=== PATIENT | female | born 1960 | race Caucasian/White ===

== ENCOUNTER 2016-06-10 14:50 | Outpatient (CLI) | payer OTHER | END 2016-06-10 14:51 | disposition home or self-care (01) | DX: Z13.9 Encounter for screening, unspecified (principal); R53.83 Other fatigue ==

== ENCOUNTER 2016-09-07 14:18 | Emergency (ER) | payer OTHER | END 2016-09-07 15:52 | disposition left against medical advice (07) | LOC: ED 14:18 | DX: Z53.21 Procedure and treatment not carried out due to patient leaving prior to being seen by health care provider (principal) | CPT/HCPCS: 99281 ==

== ENCOUNTER 2017-08-25 10:08 | Outpatient (CLI) | payer MEDICAID ==
[2017-08-25 17:35] LABS: BASOPHILS # (AUTO) 0.1 10^3/uL (0.0-0.1); BASOPHILS % (AUTO) 0.6 %; EOSINOPHILS # (AUTO) 0.1 10^3/uL (0.0-0.7); EOSINOPHILS % (AUTO) 1.2 %; HGB - HEMOGLOBIN 15.2 g/dL (12.0-16.0); LYMPHOCYTES # (AUTO) 2.8 10^3/uL (1.5-3.5); LYMPHOCYTES % (AUTO) 32.7 %; MEAN CORPUSCULAR HGB CONC 32.4 g/dL (32.0-36.0); MEAN CORPUSCULAR VOLUME 92.7 fL (81.0-99.0); MEAN PLATELET VOLUME 8.9 fL (7.9-10.8); MONOCYTES # (AUTO) 0.5 10^3/uL (0.0-1.0); MONOCYTES % (AUTO) 5.6 %; NEUTROPHILS # (AUTO) 5.1 10^3/uL (1.5-6.6); NEUTROPHILS % (AUTO) 59.9 %; PLT - PLATELET COUNT 273 10^3/uL (130-450); RED BLOOD COUNT 5.06 10^6/uL (4.20-5.40); RED CELL DISTRIBUTION WIDTH 14.3 % (12.0-15.0); WHITE BLOOD COUNT 8.5 x10^3/uL (4.8-10.8)
[2017-08-25 18:01] LABS: ALBUMIN 4.4 g/dL (3.2-5.5); ALBUMIN/GLOBULIN RATIO 1.2 (1.0-2.2); ALKALINE PHOSPHATASE 111 IU/L (42-121); ALT ALANINE AMINOTRANSFERASE 21 IU/L (10-60); AST ASPARTATE AMINOTRANSFERASE 20 IU/L (10-42); BILIRUBIN,TOTAL 0.4 mg/dL (0.2-1.0); BUN - BLOOD UREA NITROGEN 18 mg/dL (6-20); CALCIUM 9.8 mg/dL (8.5-10.3); CARBON DIOXIDE - CO2 26 mmol/L (21-32); CHLORIDE 103 mmol/L (101-111); CHOLESTEROL 215 mg/dL; CREATININE 0.8 mg/dL (0.4-1.0); GFR - MDRD 74 (>89); GLUCOSE 83 mg/dL (70-100); HDL CHOLESTEROL 72 mg/dL; LDL CHOLESTEROL,CALCULATED 127 mg/dL; LDL/HDL RATIO 1.8 (<4.4); SODIUM 138 mmol/L (135-145); VLDL CHOLESTEROL 16 mg/dL
== END 2017-08-25 10:09 | disposition home or self-care (01) ==
LOC: LAB.F 10:08
PROVIDERS: ATTEND Physician Assistant Medical
DX: Z00.00 Encounter for general adult medical examination without abnormal findings (principal)
CPT/HCPCS: 36415; 80053; 80061; 82306; 83721; 84443; 85025

== ENCOUNTER 2017-09-24 14:11 | Emergency (ER) | payer MEDICAID ==
--- NOTE | 2017-09-24 14:22 | ED Physician Documentation ---
History of Present Illness - Stated complaint Stated Complaint: GLF - Chief complaint Chief Complaint: Back Pain - History obtained from History obtained from: Patient - History of Present Illness Timing: Today Pain level max: 8 Pain level now: 8 Improved by: rest Worsened by: movement - Additonal information Additional information: 56 year old female fell off her horse today. 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 No LOC. No headache. Took tramadol and vicodin without relief. Also took ibuprofen. States only pain is to the lower back. No numbness, no tingling, no loss of bowel or bladder control. No history of low back issues. Review of Systems Ten Systems: 10 systems reviewed and negative Constitutional: denies: Fever, Chills Nose: denies: Rhinorrhea / runny nose, Congestion Throat: denies: Sore throat Cardiac: denies: Chest pain / pressure Respiratory: denies: Cough GI: denies: Abdominal Pain, Nausea, Vomiting, Diarrhea Skin: denies: Rash Musculoskeletal: reports: Back pain. 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 - Present Medications Home Medications: Ambulatory Orders Medication Instructions Recorded Confirmed Citalopram [CeleXA] 10 mg DAILY 12/09/15 12/09/15 diazePAM [Valium] 5 - 10 mg PO TID PRN #15 tablet 09/24/17 - Allergies Allergies/Adverse Reactions: Allergies Allergy/AdvReac Type Severity Reaction Status Date / Time No Known Drug Allergies Allergy Verified 12/09/15 09:35 - Social History Does the pt smoke?: No Smoking Status: Never smoker Does the pt drink ETOH?: Yes Does the pt have substance abuse?: No - Immunizations Immunizations are current?: Yes - POLST Patient has POLST: No PD ED PE NORMAL - Vitals Vital signs reviewed: Yes - General General: Alert and oriented X 3, No acute distress, Well developed/nourished - HEENT HEENT: Atraumatic, PERRL, EOMI, Ears normal, Moist mucous membranes - Neck Neck: Supple, no meningeal sign, No bony TTP - Cardiac Cardiac: RRR, Strong equal pulses - Respiratory Respiratory: No respiratory distress, Clear bilaterally - Abdomen Abdomen: Soft, Non tender, Non distended - Back Back: Other (L spine TTP midline approx L 3-5. No C or T spine tenderness. NVI. Paraspinal spasm present. 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 Findings likely represent an age-indeterminate compression fracture. Correlate for area of pain. Findings could be confirmed with CT or MRI. . Facet arthropathy at L4-L5 and L5-S1. ) PD MEDICAL DECISION MAKING - ED course Complexity details: reviewed results, re-evaluated patient (no tenderness over upper L spine or lower T spine on serial exam. ), considered differential (no cauda equina, no spinal epidural abscess, no fracture, no aortic dissection or evidence of aneursym rupture), d/w patient, d/w family ED course: Patient is a 56-year-old female who presents to the emergency department with back pain after falling off a horse earlier today. Appears to have an old L1 superior endplate compression fracture. There is no pain or tenderness at that level on examination today. All of her pain is to the lower lumbar spine. Pain well controlled. Has narcotic pain medication at home and will add Valium for muscle relaxants. We will have her follow-up closely with her PCP for further care. Ambulating well. Patient counseled regarding signs and symptoms for which I believe and urgent re-evaluation would be necessary. Patient with good understanding of and agreement to plan and is comfortable going home at this time This document was made in part using voice recognition software. While efforts are made to proofread this document, sound alike and grammatical errors may occur. Departure - Departure Disposition: 01 Home, Self Care Clinical Impression: Back strain Qualifiers: Encounter type: initial encounter Qualified Code(s): S39.012A - Strain of muscle, fascia and tendon of lower back, initial encounter Condition: Good Instructions: ED Sprain Strain Lumbar Follow-Up: Montserrat Arnold PA-C [Primary Care Provider] - Within 1 week Prescriptions: diazePAM [Valium] 5 - 10 mg PO TID PRN #15 tablet PRN Reason: Spasms Comments: Return if you worsen. This should improve over the next few days. Do not drink alcohol or drive while on valium. If you received narcotic pain medication in the emergency department, do not drive or operate machinery for the next 24 hours. Discharge Date/Time: 09/24/17 16:46
[2017-09-24] MEDS ORDERED: HYDROmorphone 1 MG/ML CARPUJECT IM STA (14:29)
[2017-09-24] MEDS ORDERED: diazePAM INJ 5 MG/ML SYRINGE IVP STA (14:40)
[2017-09-24] MEDS ORDERED: HYDROmorphone 1 MG/ML CARPUJECT IVP STA (14:40)
--- NOTE | 2017-09-24 15:24 | XRAY Preliminary Report ---
Exam: XR LUMBAR SPINE 2 VIEW IMPRESSION: 1. Age-indeterminate L1 superior catheter loss of 10-15%. Findings likely represents an age-indetermi shadia compression fracture. Correlate for area of pain. Findings could be confirmed with CT or MRI. 2. Facet arthropathy at L4-L5 and L5-S1. [facility] SITE ID: [id number]
--- NOTE | 2017-09-24 15:41 | XRAY Report ---
EXAM: LUMBOSACRAL SPINE RADIOGRAPHY EXAM DATE: 09/24/2017 03:06 PM. CLINICAL HISTORY: Fell off horse. COMPARISONS: None. TECHNIQUE: 3 views. FINDINGS: Alignment: Gentle convex to the left curvature centered at the mid lumbar spine. No spondylolisthesis appreciated. Bones: Five vjl-zdf-apezucz lumbar vertebral bodies are present. Approximately 10-15% L1 superior end plate height loss. The remaining vertebral bodies are intact. Disks: Normal. Disk heights are maintained. Facets: Facet sclerosis most notable at L4-L5 and L5-S1 level. Sacroiliac Joints: Unremarkable. Soft Tissues: Normal. The visualized bowel gas pattern is normal. Comment: Significant stool and gas overlies the sacrum limiting the evaluation for fractures. IMPRESSION: 1. Age-indeterminate L1 superior catheter loss of 10-15%. Findings likely represent an age-indetermin ate compression fracture. Correlate for area of pain. Findings could be confirmed with CT or MRI. 2. Facet arthropathy at L4-L5 and L5-S1. [facility] Referring Provider Line: [phone] SITE ID: [id number]
[2017-09-24 16:18] VITALS: BP 119/81
== END 2017-09-24 16:46 | disposition home or self-care (01) ==
LOC: ED 14:11
DX: S39.012A Strain of muscle, fascia and tendon of lower back, initial encounter (principal); V80.010A Animal-rider injured by fall from or being thrown from horse in noncollision accident, initial encounter; Y93.52 Activity, horseback riding; M81.0 Age-related osteoporosis without current pathological fracture
CPT/HCPCS: 72100; 96374; 96375; 99283; 99284; J1170

== ENCOUNTER 2017-10-20 11:31 | Outpatient (CLI) | payer MEDICAID ==
--- NOTE | 2017-10-20 12:31 | XRAY Report ---
THREE VIEW RIGHT GREAT TOE: 10/20/2017 CLINICAL INDICATION: Pain. FINDINGS: AP, lateral, oblique views of the right great toe demonstrate sideplate and screw fixation of the first metatarsophalangeal joint. Mild osteoarthritic changes are present in the interphalangeal joint. There is no evidence of fracture or hardware complication. IMPRESSION: PREVIOUS FUSION OF THE FIRST METATARSOPHALANGEAL JOINT. NO EVIDENCE OF FRACTURE OR HARDWARE COMPLICATION. TD: 10/20/2017 12:19
== END 2017-10-20 11:32 | disposition home or self-care (01) ==
LOC: DI 11:31
PROVIDERS: ATTEND Family Medicine
DX: M79.674 Pain in right toe(s) (principal)
CPT/HCPCS: 73660

== ENCOUNTER 2017-10-20 11:32 | Outpatient (CLI) | payer MEDICAID ==
--- NOTE | 2017-10-20 12:28 | XRAY Report ---
THREE VIEW RIGHT ANKLE: 10/20/2017 CLINICAL INDICATION: Pain status post fall. FINDINGS: AP, lateral, oblique views of the right ankle demonstrate a mildly displaced fracture of the distal fibular shaft. Lateral soft tissue swelling is present. No joint effusion is seen. IMPRESSION: MILDLY DISPLACED FRACTURE OF THE DISTAL FIBULAR SHAFT. TD: 10/20/2017 12:14
--- NOTE | 2017-10-20 12:29 | XRAY Report ---
TWO VIEW RIGHT LOWER LE10/20/2017 CLINICAL INDICATION: Pain. FINDINGS: AP, lateral views of the right lower leg demonstrate a mildly displaced fracture of the distal fibular shaft. No proximal fracture is seen. Osteoarthritis is present, mild. IMPRESSION: MILDLY DISPLACED FRACTURE OF THE DISTAL FIBULAR SHAFT. TD: 10/20/2017 12:15
== END 2017-10-20 11:33 | disposition home or self-care (01) ==
LOC: DI 11:32
PROVIDERS: ATTEND Physician Assistant Medical
DX: S82.401A Unspecified fracture of shaft of right fibula, initial encounter for closed fracture (principal); M79.661 Pain in right lower leg; M25.571 Pain in right ankle and joints of right foot; M79.674 Pain in right toe(s)
CPT/HCPCS: 73660

== ENCOUNTER 2018-04-01 12:35 | Outpatient (CLI) | payer OTHER ==
--- NOTE | 2018-04-01 13:54 | XRAY Report ---
Reason: SHOULDER JOINT PAIN,RIGHT Procedure Date: 04/01/2018 Accession Number: [id number] / [id number] Procedure: XR - Shoulder 3 View RT CPT Code: FULL RESULT: EXAM: RIGHT SHOULDER RADIOGRAPHY EXAM DATE: 04/01/2018 01:10 PM. CLINICAL HISTORY: SHOULDER JOINT Pain, right. COMPARISON: None. TECHNIQUE: 3 views. FINDINGS: Bones: No fracture or bone lesion. Joints: The glenohumeral and acromioclavicular joints are anatomically aligned. There is moderately advanced degenerative narrowing with sclerosis and spurring of the right glenohumeral articulation.. Soft tissues: The included hemithorax is unremarkable. No soft tissue calcification. IMPRESSION: Moderate degenerative change right glenohumeral articulation without superimposed acute findings. [facility]
== END 2018-04-01 12:36 | disposition home or self-care (01) ==
LOC: DI 12:35
PROVIDERS: ATTEND Physician Assistant Medical
DX: M19.011 Primary osteoarthritis, right shoulder (principal)

== ENCOUNTER 2018-04-04 10:08 | Outpatient (CLI) | payer OTHER ==
--- NOTE | 2018-04-05 10:57 | DEXA Report ---
Reason: SCREENING FOR OSTEOPOROSIS Procedure Date: 04/04/2018 Accession Number: [id number] / [id number] Procedure: DEX - Dexa Spine and/or Hip CPT Code: FULL RESULT: EXAM: Dexa Spine and/or Hip DATE: 04/04/2018 10:36 AM CLINICAL HISTORY: SCREENING FOR OSTEOPOROSIS TECHNIQUE: Dual energy x-ray absorptiometry (DXA) was performed on a [employer] System. Regions measured are the AP Spine, femoral neck, and if needed forearm. COMPARISON: None. In accordance with the International Society for Clinical Densitometry (ISCD) guidelines, data from previous exams may be reanalyzed using current recommendations and techniques. This is done to allow a more accurate basis for comparison with the current study. FINDINGS: The data for the lumbar spine is as follows: BMD (g/cm/cm) T-SCORE Z-SCORE REGION L1 1.110 -0.2 1.2 L2 0.841 -3.0 -1.6 L3 0.985 -1.8 -0.4 L4 0.960 -2.0 -0.6 TOTAL 0.938 -2.2 -0.8 NOTE: All evaluable vertebrae are used for classification The data for the hip is as follows: BMD (g/cm/cm) T-SCORE Z-SCORE REGION Neck 0.687 -2.5 -1.2 TOTAL 0.714 -2.3 -1.3 NOTE: The femoral neck or total proximal femur, whichever is lowest, is used for classification. IMPRESSION: THE WHO CLASSIFICATION BASED ON THE INTERNATIONAL REFERENCE STANDARD IS OSTEOPOROSIS. THE FRACTURE RISK IS HIGH. RECOMMENDATION: Patients with diagnosis of osteoporosis or osteopenia should have regular bone mineral density assessment. For those eligible for Medicare, routine testing is allowed once every 2 years. Testing frequency can be increased for patients who have rapidly progressing disease or for those who are receiving medical therapy to restore bone mass. COMMENT: World Health Organization (WHO) definitions for osteoporosis and osteopenia: NORMAL BMD: T-score at -1.0 or higher, fracture risk is low OSTEOPENIA BMD: T-score between -1.0 and -2.5, fracture risk is increased. OSTEOPOROSIS BMD: T-score at -2.5 or lower, fracture risk is high. National Osteoporosis Foundation recommends: 1. Obtain adequate dietary calcium (at least 1200 mg per day) and vitamin D (400-800 international units per day). 2. Participate, as appropriate, in regular weightbearing and muscle-strengthening exercise. 3. Avoid tobacco use and reduce alcohol and caffeine intake. 4. For more detailed information see the website at www.NOF.org.
== END 2018-04-04 10:09 | disposition home or self-care (01) ==
LOC: DI 10:08
PROVIDERS: ATTEND Physician Assistant Medical
DX: Z13.820 Encounter for screening for osteoporosis (principal); M81.0 Age-related osteoporosis without current pathological fracture
CPT/HCPCS: 77080

== ENCOUNTER 2018-04-12 11:23 | Outpatient (CLI) | payer OTHER ==
--- NOTE | 2018-04-13 09:06 | Mammography Report ---
Reason: SCREENING MAMMO NEC Procedure Date: 04/12/2018 Accession Number: [id number] / [id number] Procedure: YUN - Screening Mammo w/Kam CPT Code: FULL RESULT: EXAM: Screening Mammo w/Kam DATE: 04/12/2018 11:56 AM CLINICAL HISTORY: 57 year-old nulliparous female for screening. TECHNIQUE: Bilateral CC and MLO views were obtained. COMPARISON: 07/28/2011, 02/07/2010, 01/07/2009. FINDINGS: The breasts demonstrate scattered fibroglandular densities bilaterally. No suspicious masses, clustered microcalcifications, or regions of architectural distortion are identified. IMPRESSION: Negative examination RECOMMENDATION: Routine annual screening unless otherwise clinically indicated. BIRADS CATEGORY 1: Negative STANDARD QUALIFYING STATEMENTS: 1. This examination was not reviewed with the aid of Computer-Aided Detection (CAD). 2. A negative or benign imaging report should not delay biopsy if clinically suspicious findings are present. Consider surgical consultation if warrented. More than 5% of cancers are not identified by imaging. 3. Dense breasts may obscure an underlying neoplasm. 4. This examination was reviewed with the aid of 3D breast imaging (tomosynthesis).
== END 2018-04-12 11:24 | disposition home or self-care (01) ==
LOC: DI 11:23
PROVIDERS: ATTEND Physician Assistant Medical
DX: Z12.31 Encounter for screening mammogram for malignant neoplasm of breast (principal)
CPT/HCPCS: 77063; 77067

== ENCOUNTER 2019-09-20 18:00 | Outpatient (CLI) | payer MEDICAID | END 2019-09-20 18:01 | disposition home or self-care (01) | LOC: COV 18:00 | PROVIDERS: ATTEND Family Medicine | DX: R05 Cough (principal); R06.02 Shortness of breath; R06.2 Wheezing; R53.83 Other fatigue | CPT/HCPCS: 81599 ==

== ENCOUNTER 2020-12-27 09:17 | Outpatient (CLI) | payer MEDICAID | END 2020-12-27 09:18 | disposition home or self-care (01) | LOC: RT 09:17 | PROVIDERS: ATTEND Internal Medicine | DX: J45.909 Unspecified asthma, uncomplicated (principal) | CPT/HCPCS: 94060; 94729 ==

== ENCOUNTER 2021-01-02 09:47 | Outpatient (CLI) | payer MEDICAID ==
--- NOTE | 2021-01-02 12:19 | DEXA Report ---
PROCEDURE: Dexa Spine and/or Hip INDICATIONS: OSTEOPOROSIS TECHNIQUE: Dual energy x-ray absorptiometry (DXA) was performed on a [employer] System. Regions measur ed are the AP Spine, femoral neck, and if needed forearm. COMPARISON: None. FINDINGS: Lumbar Spine: Bone Mineral Density 0.981 g/cm/cm,T score -1.7, osteopenia Left Femoral Neck: Bone Mineral Density 0.686 g/cm/cm, T score -2.6, osteoporosis (T score greater or equal to -1.0: NORMAL) (T score from -1.1 to -2.4: OSTEOPENIA) (T score less than or equal to -2.5 to: OSTEOPOROSIS) Impression: Osteoporosis Patients with diagnosis of osteoporosis or osteopenia should have regular bone mineral density assess ment. For those eligible for Medicare, routine testing is allowed once every 2 years. Testing frequ ency can be increased for patients who have rapidly progressing disease or for those who are receivin g medical therapy to restore bone mass. Reviewed by: Norberto Lemus MD on 01/02/2021 12:18 PM PDT Approved by: Norberto Lemus MD on 01/02/2021 12:18 PM PDT Station ID: [id number]
== END 2021-01-02 09:48 | disposition home or self-care (01) ==
LOC: DI 09:47
PROVIDERS: ATTEND Internal Medicine
DX: M81.0 Age-related osteoporosis without current pathological fracture (principal)

== ENCOUNTER 2021-01-28 12:58 | Outpatient (CLI) | payer MEDICAID ==
--- NOTE | 2021-01-28 13:38 | XRAY Report ---
PROCEDURE: Chest 2 View X-Ray INDICATIONS: ASTHMA TECHNIQUE: 2 view(s) of the chest. COMPARISON: None. FINDINGS: Surgical changes and devices: None. Lungs and pleura: No pleural effusions or pneumothorax. There is hyperinflation. No focal infiltrate . Mediastinum: Mediastinal contours are normal. Heart size is normal. Bones and chest wall: No suspicious bony abnormalities. Soft tissues appear unremarkable. IMPRESSION: Mild hyperinflation. No focal infiltrate, pleural effusion or pneumothorax. Reviewed by: Jovanny Randolph MD on 01/28/2021 1:36 PM PDT Approved by: Jovanny Randolph MD on 01/28/2021 1:36 PM PDT Station ID: [id number]
== END 2021-01-28 12:59 | disposition home or self-care (01) ==
LOC: DI.S 12:58
PROVIDERS: ATTEND Internal Medicine
DX: J45.909 Unspecified asthma, uncomplicated (principal)

== ENCOUNTER 2022-05-13 09:12 | Outpatient (CLI) | payer MEDICAID ==
--- NOTE | 2022-05-13 09:35 | XRAY Report ---
PROCEDURE: Chest 2 View X-Ray INDICATIONS: CHEST PX TECHNIQUE: 2 views of the chest were acquired. COMPARISON: 01/28/2021 FINDINGS: Surgical changes and devices: None. Lungs and pleura: No pleural effusions or pneumothorax. Lungs are clear. The lungs are hyperinflat ed. Mediastinum: Mediastinal contours are normal. Heart size is normal. Bones and chest wall: No suspicious bony abnormalities. Soft tissues appear unremarkable. IMPRESSION: Mild hyperinflation, unchanged. No acute cardiopulmonary abnormality Reviewed by: Christ Jerez on 05/13/2022 9:33 AM [facility] Approved by: Christ Jerez on 05/13/2022 9:33 AM [facility] Station ID: [id number]
== END 2022-05-13 09:13 | disposition home or self-care (01) ==
LOC: DI 09:12
PROVIDERS: ATTEND Nurse Practitioner Family
DX: J44.9 Chronic obstructive pulmonary disease, unspecified (principal)

== ENCOUNTER 2022-05-13 09:35 | Outpatient (CLI) | payer MEDICAID ==
--- NOTE | 2022-05-13 11:13 | CT Report ---
PROCEDURE: Low Dose Lung Cancer Screen INDICATIONS: EX SMOKER TECHNIQUE: Noncontrast low-dose axial images were acquired from the pulmonary apices to the posterior costophren ic angles. Multiplanar MIP reformats were then reconstructed. For radiation dose reduction, the follo wing was used: automated exposure control, adjustment of mA and/or kV according to patient size. COMPARISON: None. FINDINGS: Image quality: Excellent. Lungs and pleura: There is a single small 1 to 2 mm pulmonary nodular density involving the patient' s left upper lobe. No other pulmonary nodular densities are identified. No focal lung infiltrate is s een. Mild emphysematous changes noted throughout both lungs. Mediastinum: Heart size is normal. No pericardial effusion. No mediastinal adenopathy by size crit eria. Thoracic aorta and central pulmonary arteries are normal in size. Esophagus is normal in aldo gera. No hiatal hernia. Bones and chest wall: There is an old lateral left fifth rib fracture present. No suspicious bony le sions. There appears to be an old moderate compression fracture involving the lower thoracic spine. N o axillary or supraclavicular adenopathy by size criteria. The thyroid is normal in size and there a re no incidental findings. Abdomen: Visualized upper abdomen solid organs and bowel loops appear normal in the absence of contr ast. IMPRESSION: 1. Single small 1 to 2 mm pulmonary nodular density involving the patient's left upper lobe. 2. Mild emphysematous changes noted throughout both lungs. 3. Old lateral left fifth rib fracture. 4. Old moderate compression fracture lower thoracic spine. 5. Lung rads Category 2. Benign findings. Recommend continued interval surveillance at 12 month inter vals. Reviewed by: Gabriel Smart MD on 05/13/2022 11:12 AM PST Approved by: Gabriel Smart MD on 05/13/2022 11:12 AM PST Station ID: [id number]
== END 2022-05-13 09:36 | disposition home or self-care (01) ==
LOC: DI 09:35
PROVIDERS: ATTEND Nurse Practitioner Family
DX: Z12.2 Encounter for screening for malignant neoplasm of respiratory organs (principal); Z87.891 Personal history of nicotine dependence; R91.1 Solitary pulmonary nodule; J43.9 Emphysema, unspecified; S22.32XD Fracture of one rib, left side, subsequent encounter for fracture with routine healing; S22.008D Other fracture of unspecified thoracic vertebra, subsequent encounter for fracture with routine healing

== ENCOUNTER 2022-10-29 15:20 | Outpatient (CLI) | payer MEDICAID ==
--- NOTE | 2022-11-03 08:42 | Mammography Report ---
BILATERAL DIGITAL SCREENING MAMMOGRAM 3D/2D: 10/29/2022 CLINICAL: Routine screening. Comparison is made to exams dated: 04/12/2018 mammogram and 07/09/2011 mammogram - [facility]. There are scattered areas of fibroglandular density in both breasts (category b / 25%-50% glandular t issue). No significant masses, calcifications, or other findings are seen in either breast. There has been no significant interval change. IMPRESSION: NEGATIVE There is no mammographic evidence of malignancy. A 1 year screening mammogram is recommended. Based on the Tyrer Cuzick model (a risk assessment model) the patients lifetime risk is 7.6% and her 10 year risk is 3.2%. According to the ACR, ACS, and NCCN guidelines, an annual breast MRI exam roxy g with mammogram is recommended if the patients lifetime risk is 20% or greater. This exam was interpreted at Station ID: Unknown. NOTE: For mammograms, a report in lay terms will be sent to the patient. Approximately 15% of breast malignancies will not be visualized mammographically. In the management of a palpable breast mass, a negative mammogram must not discourage biopsy of a clinically suspicious lesion. Electronically Signed By: Abdoulaye [email or web address]:10/30/2022 10:11:12 Entry: aa - 11/03/2022 08:36:27 ACR BI-RADS Category 1: Negative 3341F PARENCHYMAL PATTERN: (A) - The breast(s) demonstrate(s) scattered fibroglandular densities. BI-RADS CATEGORY: (1) - 1 Mammogram [id number] 1 year screening LATERALITY: (B)
== END 2022-10-29 15:21 | disposition home or self-care (01) ==
LOC: DI 15:20
PROVIDERS: ATTEND Registered Nurse
DX: Z12.31 Encounter for screening mammogram for malignant neoplasm of breast (principal)

== ENCOUNTER 2023-05-12 12:08 | Outpatient (CLI) | payer MEDICAID ==
--- NOTE | 2023-05-12 14:50 | CT Report ---
PROCEDURE: Low Dose Lung Cancer Screen INDICATIONS: TOBACCO USE TECHNIQUE: A CT scan of the chest was performed. Intravenous contrast media was not administered. Images were re corded and evaluated at appropriate window settings. Reformats: axial MIP of the chest, coronal and s agittal. For radiation dose reduction, the following was used: automated exposure control, adjustment of mA and/or kV according to patient size. COMPARISON: None. FINDINGS: Image quality: Excellent. Prior cancer history: Unsure. Lungs and pleura: No pleural effusions. No pneumothorax. No suspicious pulmonary nodules which requi re follow up. Moderate centrilobular emphysema. Stable pulmonary micronodules, including the 2 mm jux tapleural nodule in the medial right upper lobe (series 3, image 82). New 6 x 5 mm solid nodule in th e posterior right upper lobe (series 3, image 75). Mediastinum: Heart size is normal. No pericardial effusion. No large vessel abnormality. No mediastin al adenopathy by size criteria. One vessel coronary artery calcifications. Aberrant right subclavian artery. Chest wall and lower neck: Thyroid is unremarkable. No axillary or supraclavicular adenopathy by size . Bones: No aggressive osseous abnormality. Upper Abdomen: Unremarkable. IMPRESSION: Lung RAD: 3 - Probably Benign. Recommendation: Continue screening in 6 Months with LDCT Non-Lung Significant Findings: None. Reviewed by: Wilder Perry on 05/12/2023 1:49 PM [facility] Approved by: Wilder Perry on 05/12/2023 1:49 PM [facility] Station ID: [id number]
== END 2023-05-12 12:09 | disposition home or self-care (01) ==
LOC: DI 12:08
PROVIDERS: ATTEND Internal Medicine Pulmonary Disease
DX: Z12.2 Encounter for screening for malignant neoplasm of respiratory organs (principal); J44.9 Chronic obstructive pulmonary disease, unspecified; Z72.0 Tobacco use; J43.2 Centrilobular emphysema; R91.8 Other nonspecific abnormal finding of lung field

== ENCOUNTER 2023-06-01 13:20 | Outpatient (CLI) | payer MEDICAID ==
[2023-06-01] MEDS ORDERED: ALBUTEROL 1 PUFF INH STA (15:59)
== END 2023-06-01 13:21 | disposition home or self-care (01) ==
LOC: RT 13:20
PROVIDERS: ATTEND Internal Medicine Pulmonary Disease
DX: J44.9 Chronic obstructive pulmonary disease, unspecified (principal)
CPT/HCPCS: 94060; 94729

== ENCOUNTER 2023-06-29 16:30 | Outpatient (CLI) | payer MEDICAID ==
--- NOTE | 2023-06-29 17:03 | DEXA Report ---
PROCEDURE: Dexa Spine and/or Hip INDICATIONS: OSTEOPOROSIS TECHNIQUE: Dual energy x-ray absorptiometry (DXA) was performed on a [employer] System. Regions measur ed are the AP Spine, femoral neck, and if needed forearm. COMPARISON: DEXA 01/02/2021. FINDINGS: Lumbar Spine: Bone Mineral Density 0.949 g/cm/cm, T score -1.9. Since the most recent prior study, there has been a statistically significant decrease in bone mineral density by -3.3 percent. Left Femoral Neck: Bone Mineral Density 0.630 g/cm/cm, T score -2.9. Osteoporosis. Left Hip: Bone Mineral Density 0.666 g/cm/cm, T score -2.7. There has been no statistically significant change in bone mineral density since the prior study. (T score greater or equal to -1.0: NORMAL) (T score from -1.1 to -2.4: OSTEOPENIA) (T score less than or equal to -2.5 to: OSTEOPOROSIS) Impression: By WHO criteria, this patient has osteoporosis. Interval statistical decrease in bone mineral density of the lumbar spine. No statistical interval change in bone mineral density of the hip. Patients with diagnosis of osteoporosis or osteopenia should have regular bone mineral density assess ment. For those eligible for Medicare, routine testing is allowed once every 2 years. Testing frequ ency can be increased for patients who have rapidly progressing disease or for those who are receivin g medical therapy to restore bone mass. Reviewed by: Lester Lange MD on 06/29/2023 5:02 PM [facility] Approved by: Lester Lange MD on 06/29/2023 5:02 PM PST Station ID: [id number]
== END 2023-06-29 16:31 | disposition home or self-care (01) ==
LOC: DI 16:30
PROVIDERS: ATTEND Registered Nurse
DX: M81.0 Age-related osteoporosis without current pathological fracture (principal)

== ENCOUNTER 2023-07-14 09:25 | Outpatient (CLI) | payer OTHER, MEDICAID ==
[2023-07-14] MEDS: ALBUTEROL 1 PUFF INH STA (10:36)
== END 2023-07-14 09:26 | disposition home or self-care (01) ==
LOC: RT 09:25
PROVIDERS: ATTEND Internal Medicine Cardiovascular Disease
DX: R06.02 Shortness of breath (principal)
CPT/HCPCS: 94060

== ENCOUNTER 2023-11-02 11:08 | Outpatient (CLI) | payer MEDICARE ==
--- NOTE | 2023-11-02 23:43 | CT Report ---
PROCEDURE: Chest WO INDICATIONS: LUNG NODULE TECHNIQUE: A CT scan of the chest was performed. Intravenous contrast media was not administered. Images were re corded and evaluated at appropriate window settings. Reformats: axial MIP of the chest, coronal and s agittal. For radiation dose reduction, the following was used: automated exposure control, adjustment of mA and/or kV according to patient size. COMPARISON: 05/12/2023, 05/13/2022. FINDINGS: Image quality: Diagnostic. Chest wall and lower neck: No thyroid nodule which requires sonographic follow up. No axillary or sup raclavicular adenopathy by size. Lungs and pleura: No consolidation. No pleural effusions. No pneumothorax. Moderate centrilobular em physema. Stable pulmonary micronodules. Previously described new 6 x 5 mm nodule in the posterior rig ht upper lobe is no longer visualized. No new or enlarging pulmonary nodule. Mediastinum: Heart size is normal. No pericardial effusion. No large vessel abnormality. No mediastin al adenopathy by size criteria. Single-vessel coronary artery calcification. Apparent right subclavi an artery, as before. Bones: No aggressive osseous abnormality. Chronic L1 compression deformity. No acute vertebral body c ompression fracture. Mild degenerative change of the visualized spine. Upper Abdomen: Unremarkable. IMPRESSION: Compared to prior CT 05/12/2023, previously described 6 mm nodule in the right upper lobe is no longer visualized. Stable pulmonary micronodules. No new or enlarging pulmonary nodule. Recommend CT low do se lung cancer screening in 12 months if patient continues to meet eligibility criteria. Reviewed by: Jeanne Hatfield MD, PhD on 11/02/2023 10:42 PM [facility] Approved by: Jeanne Hatfield MD, PhD on 11/02/2023 10:42 PM [facility] Station ID: [id number]
== END 2023-11-02 11:09 | disposition home or self-care (01) ==
LOC: DI 11:08
PROVIDERS: ATTEND Internal Medicine Pulmonary Disease
DX: R91.8 Other nonspecific abnormal finding of lung field (principal); J43.2 Centrilobular emphysema

== ENCOUNTER 2023-11-29 09:02 | Outpatient (CLI) | payer MEDICARE ==
--- NOTE | 2023-11-29 11:20 | XRAY Report ---
PROCEDURE: Shoulder 2+V RT INDICATIONS: SHOULDER PAIN TECHNIQUE: 3 views of the shoulder were acquired. COMPARISON: None. FINDINGS: Bones: Decreased mineralization diffusely. Moderate to severe glenohumeral joint space loss and luz elena inal spurring inferiorly. There is slight flattening of the glenoid fossa. No fracture or dislocation . No suspicious bone lesions. The visible rib arcs are intact. Soft tissues: No suspicious soft tissue calcifications. The visualized lungs are within normal limi ts. IMPRESSION: Moderate to severe glenohumeral joint degeneration. Reviewed by: Aida Garcia MD on 11/29/2023 11:19 AM PDT Approved by: Aida Garcia MD on 11/29/2023 11:19 AM PDT Station ID: [id number]
--- NOTE | 2023-11-29 20:47 | XRAY Report ---
PROCEDURE: Lumbar Spine 2-3V INDICATIONS: LOW BACK PAIN TECHNIQUE: 3 view(s) of the lumbar spine were acquired. COMPARISON: 09/24/2017 FINDINGS: Bones: Vertebral body height and alignment is maintained. No suspicious bony lesions. Disc height lo ss and hypertrophic facet joints noted throughout the exam particularly lower lumbar spine. L1 wedge- shaped compression fracture has lost additional height and compared to the 2018 study, although, appe ars old and chronic. Soft tissues: Overlying bowel gas pattern is normal. No suspicious soft tissue calcifications. IMPRESSION: Degenerative disc disease and arthropathy L1 compression fracture, probably old Reviewed by: Abner Lewis MD on 11/29/2023 7:46 PM [email or web address] Approved by: Abner Lewis MD on 11/29/2023 7:46 PM AKDT Station ID: [id number]
== END 2023-11-29 09:03 | disposition home or self-care (01) ==
LOC: DI 09:02
PROVIDERS: ATTEND Registered Nurse
DX: M51.36 Other intervertebral disc degeneration, lumbar region (principal); M47.816 Spondylosis without myelopathy or radiculopathy, lumbar region; M48.56XA Collapsed vertebra, not elsewhere classified, lumbar region, initial encounter for fracture; M19.011 Primary osteoarthritis, right shoulder